=== PATIENT | female | born 1930 | race African-American/Black ===

== ENCOUNTER 2018-07-18 21:10 | Emergency (ER) | payer OTHER ==
[~2018-07-18] VITALS: Ht 167.6 cm; Wt 54.6 kg
[2018-07-18] MEDS ORDERED: CLONIDINE 0.2MG TABLET PO ONE (23:00)
[2018-07-19 00:10] LABS: BASOPHILS % 0.7 % (0.0-2.0); EOSINOPHILS % 3.2 % (0.0-5.0); HEMATOCRIT. 42.3 % (36.0-48.0); HEMOGLOBIN. 13.9 g/dL (12.0-16.0); LYMPHOCYTES % 18.3 % (20.0-50.0); MEAN CORPUSCULAR HEMOGLOBIN 29.9 pg (28.0-32.0); MEAN PLATELET VOLUME 7.6 fl (7.4-10.4); MONOCYTES % 11.5 % (2.0-8.0); NEUTROPHILS % 66.3 % (40.0-76.0); PLATELET 101 x1000/uL (130-400); RED BLOOD CELL COUNT 4.65 mill/uL (4.2-5.4); RED CELL DISTRIBUTION WIDTH 17.6 % (11.6-14.6)
[2018-07-19 00:16] LABS: CHLORIDE 101 mEq/L (98-107)
[2018-07-19 00:23] LABS: INR 1.8; PARTIAL THROMBOPLASTIN TIME 47.6 sec (23.4-31.0); PROTHROMBIN TIME 17.7 sec (9.1-11.1)
[2018-07-19] MEDS ORDERED: CLONIDINE 0.2MG TABLET PO ONE (00:45)
[2018-07-19 03:20] VITALS: BP 155/45
== END 2018-07-19 03:23 | disposition short-term general hospital (02) ==
LOC: ER 21:34
DX: J81.0 Acute pulmonary edema (principal); T82.838A Hemorrhage due to vascular prosthetic devices, implants and grafts, initial encounter; I10 Essential (primary) hypertension
CPT/HCPCS: 36415; 71045; 86850; 86900; 93005; 99285

== ENCOUNTER 2019-05-11 09:39 | Emergency (ER) | payer OTHER ==
[~2019-05-11] VITALS: Ht 172.7 cm; Wt 75.0 kg
[2019-05-11 12:40] LABS: BASOPHILS % 0.7 % (0.0-2.0); EOSINOPHILS % 0.7 % (0.0-5.0); HEMATOCRIT. 31.7 % (36.0-48.0); HEMOGLOBIN. 10.8 g/dL (12.0-16.0); LYMPHOCYTES % 13.4 % (20.0-50.0); MEAN CORPUSCULAR HEMOGLOBIN 29.3 pg (28.0-32.0); MEAN CORPUSCULAR VOLUME 86.1 fL (81.0-99.0); MEAN PLATELET VOLUME 8.7 fl (7.4-10.4); MONOCYTES % 4.8 % (2.0-8.0); NEUTROPHILS % 80.4 % (40.0-76.0); PLATELET 185 x1000/uL (130-400); RED BLOOD CELL COUNT 3.68 mill/uL (4.2-5.4); RED CELL DISTRIBUTION WIDTH 17.7 % (11.6-14.6)
[2019-05-11 12:48] LABS: CHLORIDE 103 mEq/L (98-107)
[2019-05-11 14:38] LABS: PROTHROMBIN TIME 20.5 sec (9.6-11.0)
[2019-05-11] MEDS ORDERED: IOHEXOL-300 100 ML BOTTLE ONE (16:33)
[2019-05-11] MEDS ORDERED: MORPHINE SULFATE 4 MG/ML CPJ (NOT FOR IM USE) IV ONE (17:15)
[2019-05-11 18:58] VITALS: BP 139/52
== END 2019-05-11 19:16 | disposition short-term general hospital (02) ==
LOC: ER 09:39 → EDBEDREQ 12:45 → ER 19:16 → CANBEDREQ 20:05
DX: S52.502A Unspecified fracture of the lower end of left radius, initial encounter for closed fracture (principal); W18.39XA Other fall on same level, initial encounter; Y93.89 Activity, other specified; Y92.89 Other specified places as the place of occurrence of the external cause; Y99.8 Other external cause status; J44.9 Chronic obstructive pulmonary disease, unspecified; I10 Essential (primary) hypertension; E11.9 Type 2 diabetes mellitus without complications; Z86.73 Personal history of transient ischemic attack (TIA), and cerebral infarction without residual deficits
CPT/HCPCS: 36415; 70450; 71260; 73030; 73080; 73110; 74177; 80053; 82962; 83690; 85025; 85610; 93005; 96374; 99285; J2270; Q9967; A4565

== ENCOUNTER 2019-10-13 17:43 | Emergency (ER) | payer OTHER ==
[~2019-10-13] VITALS: Ht 165.1 cm; Wt 60.0 kg
[2019-10-13] MEDS ORDERED: SODIUM CHLORIDE 0.9% 1,000 ML IV ONE (18:39)
[2019-10-13] MEDS ORDERED: MORPHINE SULFATE 4 MG/ML CPJ (NOT FOR IM USE) IV STA (18:39)
[2019-10-13] MEDS ORDERED: ONDANSETRON HCL 4MG/2ML INJ IV STA (18:39)
[2019-10-13 19:18] LABS: BASOPHILS % 0.5 % (0.0-2.0); EOSINOPHILS % 1.1 % (0.0-5.0); HEMATOCRIT. 26.5 % (36.0-48.0); HEMOGLOBIN. 9.1 g/dL (12.0-16.0); LYMPHOCYTES % 11.9 % (20.0-50.0); MEAN CORPUSCULAR VOLUME 89.6 fL (81.0-99.0); MEAN PLATELET VOLUME 7.9 fl (7.4-10.4); MONOCYTES % 5.3 % (2.0-8.0); NEUTROPHILS % 81.2 % (40.0-76.0); PLATELET 149 x1000/uL (130-400); RED BLOOD CELL COUNT 2.95 mill/uL (4.2-5.4); RED CELL DISTRIBUTION WIDTH 17.9 % (11.6-14.6)
[2019-10-13 19:25] LABS: CHLORIDE 106 mEq/L (98-107)
[2019-10-13] MEDS ORDERED: MORPHINE SULFATE 2 MG/ML CPJ (NOT FOR IM USE) IV ONE (22:30)
[2019-10-14 01:02] VITALS: BP 132/47
== END 2019-10-14 01:16 | disposition short-term general hospital (02) ==
LOC: ER 17:43 → CANBEDREQ 10-14 02:04
DX: S72.141A Displaced intertrochanteric fracture of right femur, initial encounter for closed fracture (principal); E11.9 Type 2 diabetes mellitus without complications; I10 Essential (primary) hypertension; I69.328 Other speech and language deficits following cerebral infarction; W01.0XXA Fall on same level from slipping, tripping and stumbling without subsequent striking against object, initial encounter; Y93.89 Activity, other specified; Y92.018 Other place in single-family (private) house as the place of occurrence of the external cause
CPT/HCPCS: 36415; 71045; 72170; 73552; 80053; 84484; 85025; 86850; 86900; 86901; 93005; 96374; 96375; 96376; 99285; J2270; J2405; J7030